=== PATIENT | male | born 1970 | race Caucasian/White ===

== ENCOUNTER 2020-07-10 17:41 | Emergency (ER) | payer MEDICAID, OTHER ==
[~2020-07-10] VITALS: Ht 177.8 cm; Wt 83.9 kg
[2020-07-10] MEDS ORDERED: ATOR80TA PO (17:55)
[2020-07-10] MEDS ORDERED: ASPI-1169 PO (17:55)
[2020-07-10] MEDS ORDERED: METO25TA20 PO (17:55)
[2020-07-10] MEDS ORDERED: CHOL500062 PO (17:55)
[2020-07-10] MEDS ORDERED: HYDR-4077 PO (17:55)
[2020-07-10] MEDS ORDERED: AMLO-213 PO (17:55)
[2020-07-10] MEDS ORDERED: ZINC1CAP2 PO (17:55)
[2020-07-10] MEDS ORDERED: IV NS 0.9% 500 ML IV ONE (18:00)
--- NOTE | 2020-07-10 18:41 | NUR ---
COUGH WITH FEVER X 2 DAYS. PT AAOX4, VSS. RR EVEN & UNLABORED. DENIES CP, SOB, DIZZINESS, N/V/D AT THIS TIME. PT SEEN & EVAL'D BY DR. FLORES. PLACED ON [employer] FLOORING, SR. WILL CONT TO MONITOR.
[2020-07-10 18:55] LABS: CALCIUM, SERUM 8.9 mg/dL (8.5-10.1); CARBON DIOXIDE 27 mmol/L (21-32); CHLORIDE 103 mmol/L (98-107); CREATININE 1.2 mg/dL (0.6-1.3); GLUCOSE 85 mg/dL (74-106); SODIUM SERUM 140 mmol/L (136-145); UREA NITROGEN, BLOOD 11 mg/dL (7-18)
[2020-07-10 19:01] LABS: D-DIMER 0.86 mg/L(FEU (0.17-0.50)
[2020-07-10 19:09] LABS: ALANINE AMINOTRANSFERASE 53 U/L (12-78); ALBUMIN 4.2 g/dL (3.4-5.0); ALKALINE PHOSPHATASE 78 U/L (46-116); ASPARTATE AMINOTRANSFERASE 25 U/L (15-37); B-TYPE NATRIURETIC PEPTIDE 63 PG/ML (0-125); BILIRUBIN,TOTAL 0.6 mg/dL (0.2-1.0)
[2020-07-10] MEDS ORDERED: ACETAMINOPHEN ES 500 MG TABLET PO ONE (19:30)
[2020-07-10 19:32] LABS: C-REACTIVE PROTEIN 0.6 mg/dL (0.0-0.9); CREATINE KINASE, TOTAL 247 U/L (39-308); FERRITIN 183 ng/mL (8-388)
[2020-07-10 19:34] LABS: BASOPHILS % (AUTO) 0.6 % (0.0-2.0); EOSINOPHILS % (AUTO) 3.8 % (0.0-6.0); HEMATOCRIT 43 % (39-51); HEMOGLOBIN 13.9 g/dL (13.5-17.5); LYMPHOCYTES # (AUTO) 0.4 /CMM (0.8-4.8); LYMPHOCYTES % (AUTO) 4.4 % (20.0-44.0); MEAN CORPUSCULAR HGB CONC 33 g/dl (31.0-36.0); MEAN CORPUSCULAR VOLUME 93 fL (80-96); MONOCYTES # (AUTO) 1.5 /CMM (0.1-1.30); MONOCYTES % (AUTO) 17.7 % (2.0-12.0); NEUTROPHILS % (AUTO) 73.5 % (43.0-81.0); PLATELET COUNT (AUTO) 307 /CMM (150-450); RED BLOOD CELL COUNT(AUTO) 4.58 MIL/uL (4.5-6.0); WHITE BLOOD COUNT (AUTO) 8.2 K/uL (4.3-11.0)
--- NOTE | 2020-07-10 19:35 | NUR ---
PT STABLE, RR EVEN & UNLABORED, NAD NOTED AT THIS TIME. WILL CONT TO MONITOR.
[2020-07-10] MEDS ORDERED: ACETAMINOPHEN ES 500 MG TABLET ONE (20:08)
[2020-07-10 20:26] LABS: EOSINOPHILS % (MANUAL) 3 % (0-4); LYMPHOCYTES % (MANUAL) 7 % (16-48); MONOCYTES % (MANUAL) 15 % (0-11.0); NEUTROPHILS % (MANUAL) 75 (42-76)
--- NOTE | 2020-07-10 20:37 | NUR ---
Donnie brambila in [facility] - 07/10/20 at 2037 by MURRAY pt assigend to [phone]
--- NOTE | 2020-07-10 20:38 | NUR ---
called [facility] spoke to ara, pt covid positive prior to er visit. unable to take pt back
--- NOTE | 2020-07-10 21:11 | NUR ---
provided admission packet to admitting.
--- NOTE | 2020-07-10 22:05 | NUR ---
PT VSS. RR EVEN & UNLABORED. DENIES CP, SOB, DIZZINESS, N/V AT THIS TIME. WILL CONT TO MONITOR.
--- NOTE | 2020-07-10 22:29 | NUR ---
INGA, DIRECTOR, RODRICK COBB [phone]
--- NOTE | 2020-07-11 00:54 | NUR ---
pt accepted at [facility] bed [id number] berg report #[id number]
--- NOTE | 2020-07-11 01:05 | NUR ---
REPORT GIVEN TO JAHAIRA DONALDSON FOR AT [facility] FOR [facility]NA.
--- NOTE | 2020-07-11 01:37 | NUR ---
eta transport to 7:30am.
--- NOTE | 2020-07-11 01:49 | NUR ---
called [facility] spoke to donte, no available transports until 12 noon.
--- NOTE | 2020-07-11 01:50 | NUR ---
Called [facility], no available transport until after 8am.
--- NOTE | 2020-07-11 01:56 | NUR ---
called [id number], unable to transfer pt with [employer] even with auth #.
--- NOTE | 2020-07-11 05:34 | NUR ---
PATIENT IS SLEEPING. EASILY AROUSABLE. BREATHING EVENLY AND UNLABORED ON ROOM AIR. NOT IN ANY DISTRESS. CONNECTED TO THE MONITOR. BED AT THE LOWEST POSITION. CALL LIGHT IS WITHIN REACH.
[2020-07-11 06:52] VITALS: BP 158/101
--- NOTE | 2020-07-11 07:27 | NUR ---
REPORT GIVEN TO AMBULANCE TEAM FOR [facility]. AND TRANSFERRING RESPONSIBILITIES.
--- NOTE | 2020-07-12 02:07 | NUR ---
CALLED [facility] SPOKE TO PRIMARY RN KD, AWARE PT COVID PCR +
== END 2020-07-11 07:49 | disposition short-term general hospital (02) ==
LOC: ER 17:46
DX: U07.1 COVID-19 (principal); R00.0 Tachycardia, unspecified; I12.9 Hypertensive chronic kidney disease with stage 1 through stage 4 chronic kidney disease, or unspecified chronic kidney disease; N18.9 Chronic kidney disease, unspecified; Z79.82 Long term (current) use of aspirin; I69.30 Unspecified sequelae of cerebral infarction; R74.02 Elevation of levels of lactic acid dehydrogenase [LDH]
CPT/HCPCS: 36415; 71045; 80053; 82550; 82728; 83605; 83615; 83880; 84145; 84484; 85007; 85025; 85378; 85730; 86140; 87040 ×2; 87081; 87804; 93005; 99285; C9803; U0003